=== PATIENT | male | born 1955 | race Caucasian/White ===

== ENCOUNTER 2017-05-22 18:20 | Emergency (ER) | payer OTHER ==
[2017-05-22 18:34] VITALS: BP 195/94; BMI 23.6
--- NOTE | 2017-05-22 18:40 | RAD ---
Left shoulder, three views Indication: Injury with shoulder pain Findings: The acromioclavicular and glenohumeral joints are grossly intact. No acute cortical disrupt ion or malalignment identified. Impression: No acute osseous injury of the left shoulder. Reported By:
--- NOTE | 2017-05-22 18:51 | DR.EXTPAIN ---
HPI - Time seen Time seen: 18:45 - PCP Primary Care Physician: CARIE - HPI Comment HPI Comment: HISTORY BELOW. - Complaint/Symptoms Chief Complaint Doctor Comments: FELL AND HAVING LT SHOULDER PAIN, LT FOREARM PAIN AND LT FOOT PAIN. HIT HEAD AND HAVING HEAGACHE. HAVE FRACTURE LT FOOT AND ANOTHE INMATE FROM THE [facility] STEP ON HIS LT FOOT BEFORE FALL. NOT SURE IF HE FAINTED. 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. PT. STATES HE FELL, HURTING HIS LEFT SHOULDER. PT. ACCOMPANIED BY AN OFFICER, NOT IN HANDCUFFS OR SHACKLES. - Nurses notes reviewed Nurses Notes Review: Yes - Source History Provided: Patient - Mode of arrival Mode of Arrival: Wheelchair - Timing Onset of Chief Complaint: 05/22/17 - Context History of: None - Associated signs and symptoms Associated Signs and Symptoms: Pain, Swelling, Bruising PMH - PMH Past Medical History: Yes Past Medical History: Hypertension Past Surgical History: Yes Surgical History: Abdominal Surgery, Ortho Surgery, Other Past Surgical History Comment: MULTIPLE ABDOMINAL SURGERIES, RIGHT KNEE, RIGHT SHOULDER - Family History History of Family Medical Conditions: No - Social History Does patient currently use any type of tobacco product: Yes Have you used tobacco products in the last 12 months: Yes Type of Tobacco Use: Cigarettes Does any household member use tobacco: No Alcohol Use: None Do you use any recreational Drugs:: No - infectious screening In the last 2 months have you had wt loss of >10#?: NO Have you had fever, night sweats or hemotysis?: No Have you traveled outside the country in the last 6 months?: No Isolation: Standard ROS - Review of Systems Constitutional: No Symptoms Reported Eyes: No Symptoms Reported ENTM: No Symptoms Reported Respiratoy: No Symptoms Reported Cardiovascular: No Symptoms Reported Gastrointestinal/Abdominal: No Symptoms Reported Genitourinary: No Symptoms Reported Neurological: Headache Musculoskeletal: Left, Shoulder, Forearm, Foot Integumentary: Bruises (LT FOOT) Hematologic/Lymphatic: No Symptoms Reported Endocrine: No Symptoms Reported All Other Systems: Reviewed and Negative PE - Vital Signs Vitals: Temperature 97.6 F Pulse Rate 70 Respiratory Rate 18 Blood Pressure 195/94 O2 Sat by Pulse Oximetry 98 - General Limitations: No Limitations General Appearance: Alert - Head Head Exam: Normal Inspection - Eyes Eye exam: Normal Appearance - ENT ENT Exam: Normal External Ear Exam - Neck Neck Exam: Trachea Midline - Chest Chest Inspection: Symmetric Chest Wall Rise - Respiratory Respiratory Exam: Normal Lung Sounds Bilat Respiratory Exam: Bilateral Clear to Auscultation - Cardiovascular Cardiovascular Exam: Regular Rate, Normal Rhythm, Normal Heart Sounds - Abdominal Exam Abdominal Exam: Normal Bowel Sounds, Soft. negative: Tenderness - Extremities Extremities Exam: Tenderness (LEFT SHOULDER TENDER. ROM DECREASE. FOREARM TENDER LT, AND LT FOOT SWOLLEN BIGTOE TOES TENDER.) - Lower Extremities Neurovascular/Tendon Exam: Normal Capillary Refill - Back Back Exam: Normal Inspection - Neurological Neurological Exam: Alert, Oriented X3 - Psychiatric Psychiatric Exam: Normal Affect, Normal Mood - Skin Skin Exam: Erythema MDM - Differential Diagnosis Differential Diagnosis: Contusion, Fracture, Sprain Course - Treatment Treatment: SEE ORDERS. - Education/Counseling Education/Counseling: Patient, Education Educated On: Diagnosis, Needs for Follow Up ROR - XRAY XRAY Interpreted by: Radiologist XRAY Findings: REPORT DISCUSS WITH PATIENT. - Diagnosis Discharge Problem: Fracture of base of fifth metatarsal bone of left foot, Left forearm pain Sinusitis Qualifiers: Sinusitis location: unspecified location Chronicity: unspecified Qualified Code (s): J32.9 - Chronic sinusitis, unspecified Sprain of shoulder, left Qualifiers: Encounter type: initial encounter Shoulder sprain type: unspecified sprain Qualified Code(s): S43.402A - Unspecified sprain of left shoulder joint, initial encounter - Discharge Plan Disposition: 01 HOME, SELF-CARE Condition: Stable Prescriptions: Amoxicillin [Amoxil 875 mg] 875 mg PO Q12H #20 tab Ibuprofen [MOTRIN TAB 800 MG *] 800 mg PO Q8H PRN #20 tab PRN Reason: Pain/Inflammation - Follow ups/Referrals Follow ups/Referrals: [facility],None [Primary Care Provider] - 3 days LO LANDAVERDE [STAFF PHYSICIAN] - 3 days - Instructions Instructions: Shoulder Sprain, Sinusitis, Adult, [id number], Metatarsal Fracture, How to Use a Shoulder Immobilizer Additional Instructions: RETURN TO ED IF WORSE.
--- NOTE | 2017-05-22 20:27 | CT ---
CT head without contrast Indication: Head injury Comparison: None Technique: CT images of the head were obtained without contrast. Automatic exposure control was utili Taxi 24/7. Findings: There is no acute bleed, mass effect, or abnormal extra-axial collection. No acute calvaria l fracture is identified. There is mild mucosal thickening of the left maxillary sinus. The remaining visualized paranasal sinuses and mastoid air cells are otherwise grossly clear. Impression: No acute intracranial abnormality. Mild left maxillary sinusitis. Reported By:
--- NOTE | 2017-05-22 21:12 | RAD ---
HISTORY: Left foot pain and bruising. Study: Three views of the left foot. Comparison: None. Findings: There is a minimally displaced oblique fracture through the distal left 5th metatarsal and displaced fracture of the proximal left 5th metatarsal. Surrounding soft tissue swelling. Remaining osseous st ructures appear intact. Degenerative changes of the ankle and 1st MTP joint. IMPRESSION: Fractures of the left 5th metatarsal as above. Reported By:
--- NOTE | 2017-05-22 21:14 | RAD ---
HISTORY: Left forearm pain status post fall. Study: Two views of the left forearm. Comparison: None. Findings: No acute fracture or dislocation. No obvious elbow effusion on the lateral view. Soft tissues are oth erwise unremarkable. IMPRESSION: No acute osseous abnormality. Reported By:
[2017-05-22] MEDS ORDERED: TORADOL TAB PO ONE ×2 (21:40→21:42)
[2017-05-22] MEDS ORDERED: TYLENOL #3 TAB (W/CODEINE) PO ONE ×2 (21:42→21:43)
== END 2017-05-22 21:48 | disposition home or self-care (01) ==
LOC: ER 18:20
DX: S62.316A Displaced fracture of base of fifth metacarpal bone, right hand, initial encounter for closed fracture (principal); S43.402A Unspecified sprain of left shoulder joint, initial encounter; M79.632 Pain in left forearm; J32.9 Chronic sinusitis, unspecified; R51 Headache; X58.XXXA Exposure to other specified factors, initial encounter; Y92.149 Unspecified place in prison as the place of occurrence of the external cause
CPT/HCPCS: 70450; 73030; 73090; 73630; 99282; 99283